=== PATIENT | male | born 1975 | race Caucasian/White ===

== ENCOUNTER 2016-06-23 18:51 | Emergency (ER) | payer OTHER ==
[2016-06-23 19:14] VITALS: BP 109/72; PULSE 72; TEMP 98.8
--- NOTE | 2016-06-23 19:21 | PDOC ---
[id number] No Limitations - History of Present Illness Initial Comments: 06/23/16 19:21 The patient is a 40 year old male, with no significant past medical history who presents to the emergency department with left shoulder blade numbness and pain since today. The patient also notes his shoulder blade feeling cold and reports feeling similar symptoms in his left hip since wednesday, describing the pain in his hip as a tweak. He reports having no numbness and tingling in his left arm upon ED arrival. He reports also having chief complaints of left sided neck pain. He describes the pain as sharp and ranks the pain a 4/10 in pain intensity. He denies any [id number] medication for relief. He denies any prior hospitalisations. He denies chest pain and shortness of breath. He denies fever, chills, headache and dizziness. He denies nausea, vomit, diarrhea and constipation. He denies dysuria, frequency, urgency and hematuria. Allergies: NKA Past surgical history: denies Social History: denies EtOH use, denies drug use, denies tobacco use. PCP: <Jalen Best - Last Filed: 06/23/16 19:34> <Beth Hyde - Last Filed: 06/24/16 05:15> - General Chief Complaint: Pain Stated Complaint: PAIN LEFT POST. SCAPULA Time Seen by Provider: 06/23/16 19:18 Past History - Travel Traveled outside of the country in the last 30 days: No Close contact w/someone who was outside of country & ill: No <Jalen Best - Last Filed: 06/23/16 19:34> - Psycho/Social/Smoking Cessation Hx Anxiety: No Suicidal Ideation: No Smoking History: Never smoked Information on smoking cessation initiated: No Hx Alcohol Use: No Drug/Substance Use Hx: No Substance Use Type: None <Beth Hyde - Last Filed: 06/24/16 05:15> - Past Medical History Allergies/Adverse Reactions: Allergies Allergy/AdvReac Type Severity Reaction Status Date / Time No Known Allergies Allergy Verified 06/23/16 18:55 Home Medications: Ambulatory Orders Melatonin 10 mg PO HS 06/23/16 Review of Systems - Review of Systems All Other Systems: Reviewed and Negative <Jalen Best - Last Filed: 06/23/16 19:34> *Physical Exam - Vital Signs Last Vital Signs Temp Pulse Resp BP Pulse Ox 98.8 F 72 16 109/72 95 06/23/16 19:10 06/23/16 19:10 06/23/16 19:10 06/23/16 19:10 06/23/16 19:10 - Physical Exam Comments: 06/23/16 19:34 GENERAL: The patient is awake, alert, and fully oriented, in no acute distress. HEAD: Normal with no signs of trauma. EYES: Pupils equal, round and reactive to light, extraocular movements intact, sclera anicteric, Mild erythema medial portion of left conjunctiva, without crusting or drainage. ENT: Ears normal, nares patent, oropharynx clear without exudates. Moist mucous membranes. NECK: Normal range of motion, supple without lymphadenopathy, JVD, or masses. LUNGS: Breath sounds equal, clear to auscultation bilaterally. No wheeze/ crackles. HEART: Regular rate and rhythm, normal S1 and S2 without murmur or rub. ABDOMEN: Soft/nontender/nondistended. BS wnl. No guarding or rebound. No palpable masses. No hepatosplenomegaly. EXTREMITIES: Normal range of motion, no edema. No clubbing or cyanosis. No cords , erythema, or tenderness. NEUROLOGICAL: Cranial nerves II through XII grossly intact. Normal speech, normal gait. PSYCH: Normal mood, normal affect. SKIN: Warm, Dry, normal turgor, no rashes or lesions noted. <Jalen Best - Last Filed: 06/23/16 19:34> - Vital Signs Last Vital Signs Temp Pulse Resp BP Pulse Ox 98.8 F 72 16 109/72 95 06/23/16 19:10 06/23/16 19:10 06/23/16 19:10 06/23/16 19:10 06/23/16 19:10 - Physical Exam Comments: twelve-lead electrocardiogram performed. this shows normal sinus rhythm at 71/ minute. Bucklin, intervals and waveforms are all normal. <Beth Hyde - Last Filed: 06/24/16 05:15> ED Treatment Course - LABORATORY CBC & Chemistry Diagram: 06/23/16 20:15 06/23/16 20:15 <Beth Hyde - Last Filed: 06/24/16 05:15> Medical Decision Making - Medical Decision Making Documentation has been prepared under my direction and personally reviewed by me in its entirety. I attest that this documented accurately reflects all work, treatment, procedures and medical decision making performed by me. as noted above, this 40-year-old man presents with left sidedneck pain/left scapular numbness.Patient was referred here by his PMD, . Case discussed with : laboratory evaluation including cardiac enzymes and C-spine film will be performed. laboratory evaluation is essentially normal. Cervical spine x-ray shows no evidence of fracture/dislocation/DJD. Results discussed with the patient who feels significantly improved. He will be discharged with decrease in strenuous activity involving upper body for the next week. He should return to ER if he experiences severe symptoms. Followup with Dr Justin should be within the next week <Beth Hyde - Last Filed: 06/24/16 05:15> *DC/Admit/Observation/Transfer - Attestations Scribe Attestion: 06/23/16 19:22 Documentation prepared by Jalen Best, acting as medical director of hospice for Beth Hyde MD. <Jalen Best - Last Filed: 06/23/16 19:34> <Beth Hyde - Last Filed: 06/24/16 05:15> Diagnosis at time of Disposition: Left shoulder strain Qualifiers: Encounter type: initial encounter Qualified Code(s): S46.912A - Strain of unspecified muscle, fascia and tendon at shoulder and upper arm level, left arm , initial encounter - Discharge Dispostion Disposition: HOME Condition at time of disposition: Stable - Referrals Referrals: Wallace Justin MD [Staff Physician] - Call tomorrow - Patient Instructions Printed Discharge Instructions: DI for Shoulder Pain Additional Instructions: avoid upper body strenuous activity for the next week return to ER if you have severe pain/numbness/ shortness of breath followup with Dr Justin as arranged
[2016-06-23 20:30] LABS: BASOPHIL 0.4 % (0-2.0); EOSINOPHIL 1.4 % (0-4.5); MCH 30.3 pg (25.7-33.7); MEAN CELL VOLUME 91.6 fl (80-96); MEAN PLT VOLUME 8.5 fl (7.5-11.1); NEUTROPHILS 60.4 % (42.8-82.8); PLATELET COUNT 235 K/MM3 (134-434); RDW 12.5 % (11.9-15.9); WHITE BLOOD COUNT 6.4 K/mm3 (4.0-10.0)
[2016-06-23 20:39] LABS: ALBUMIN 4.5 g/dl (3.5-5.0); ALK PHOS 61 U/L (32-92); ANION GAP 10 (8-16); BILIRUBIN,TOTAL 0.8 mg/dl (0.2-1.0); CALCIUM 9.4 mg/dl (8.4-10.2); CO2 23 mmol/L (22-28); CREATININE 0.9 mg/dl (0.6-1.3); GLUCOSE,RANDOM 125 mg/dl (74-106); SGOT/AST 46 U/L (10-42); SGPT/ALT 34 U/L (10-40); TOT PROT 7.2 g/dl (6.4-8.3)
[2016-06-23 20:40] LABS: CPK(DFH) 205 IU/L (38-174)
[2016-06-23 21:02] LABS: TROPONIN I (DFP) < 0.03 ng/ml (0.03-0.50)
[2016-06-23 21:10] LABS: CK MB 2.5 ng/ml (0.3-4.0)
--- NOTE | 2016-06-24 10:28 | EKG ---
Test Reason : Blood Pressure : / mmHG Vent. Rate : 071 BPM Atrial Rate : 071 BPM P-R Int : 168 ms QRS Dur : 104 ms QT Int : 384 ms P-R-T Axes : 039 033 014 degrees QTc Int : 417 ms NORMAL SINUS RHYTHM NORMAL ECG NO PREVIOUS ECGS AVAILABLE Confirmed by SOPHIA LANGE MD ([id number]) on 06/24/2016 10:27:55 AM Referred By: DR BEAULIEU Confirmed By:SOPHIA LANGE MD
== END 2016-06-23 22:03 | disposition home or self-care (01) ==
LOC: FER 18:51
DX: S46.912A Strain of unspecified muscle, fascia and tendon at shoulder and upper arm level, left arm, initial encounter (principal); X58.XXXA Exposure to other specified factors, initial encounter; Y93.9 Activity, unspecified; Y92.9 Unspecified place or not applicable
CPT/HCPCS: 36415; 72050-TC; 80053; 82550; 82553; 84484; 85025; 93005; 99283-25

== ENCOUNTER 2017-04-09 10:07 | Emergency (ER) | payer OTHER ==
[2017-04-09 10:16] VITALS: BP 128/84; PULSE 72; TEMP 97.9; BMI 28.8
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
[2017-04-09] MEDS ORDERED: NAPROXEN 500 MG TABLET (FP) PO ONE (11:15)
[2017-04-09] MEDS ORDERED: NAPROXEN 500 MG TABLET (FP) ONE (11:23)
== END 2017-04-09 12:15 | disposition home or self-care (01) ==
LOC: JERFT 10:07
DX: S13.4XXA Sprain of ligaments of cervical spine, initial encounter (principal); V43.52XA Car driver injured in collision with other type car in traffic accident, initial encounter; Y92.414 Local residential or business street as the place of occurrence of the external cause; Y93.89 Activity, other specified
CPT/HCPCS: 72050-TC; 99281-25